=== PATIENT | male | born 1985 | race Hispanic/Latino ===

== ENCOUNTER 2018-05-11 19:10 | Emergency (ER) | payer MEDICAID, OTHER, SELFPAY ==
[2018-05-11 19:21] VITALS: BP 148/96; PULSE 88; RESP 16; TEMP 36.9; O2SAT 97; BMI 27.2
--- NOTE | 2018-05-11 19:23 | DI.CT.S_ITS ---
PROCEDURE: CT CHEST WO CON INDICATIONS: Ingestion of broken glass? TECHNIQUE: Noncontrast 5 mm thick sections acquired from the pulmonary apices to the posterior costophrenic angles. 7 mm thick coronal and sagittal MIP reformats were then acquired. For radiation dose reduction, the following was used: automated exposure control, adjustment of mA and/or kV according to patient size. COMPARISON: None. FINDINGS: Image quality: Excellent. Lungs and pleura: No acute air space opacities. No pleural effusions or pneumothorax. Central and peripheral airways are patent and normal in caliber. Mediastinum: Heart size is normal. No pericardial effusion. No mediastinal adenopathy by size criteria. Thoracic aorta and central pulmonary arteries are normal in size. Esophagus is normal in caliber. No hiatal hernia. Bones and chest wall: No suspicious bony lesions. No vertebral body compression fractures. Spine degenerative disease and facet arthropathy noted. No axillary or supraclavicular adenopathy by size criteria. Thyroid gland is within normal limits. Abdomen: Visualized upper abdominal solid organs and bowel loops appear normal in the absence of contrast. No definite radiodense foreign bodies. IMPRESSION: 1. No pneumomediastinum or pneumothorax. 2. No lung consolidation or pleural fluid collections. 3. No definite radiodense foreign bodies. Please note not all glass is radiopaque. Dictated by: Aleyda Wood MD, PhD on 05/11/2018 at 19:48 Approved by: Aleyda Wood MD, PhD on 05/11/2018 at 19:51
--- NOTE | 2018-05-11 19:32 | PC.NURSE ---
Pt reports finding glass in mouth after taking bite of goulash. Unsure if swallowed any. has pain in throat. starts dry heaving after swallowing anything.
--- NOTE | 2018-05-11 19:35 | ED.ABDPAIN ---
HPI - Abdominal Pain <LEXIE Baldwin - Last Filed: 05/11/18 21:54> General Chief Complaint: Abdominal Pain Stated Complaint: was eating, feels like something stuck in throat Time Seen by Provider: 05/11/18 19:14 Source: patient Mode of arrival: ambulatory Limitations: no limitations History of Present Illness HPI narrative: 33-year-old healthy male that is a nonsmoker here for complaint of pain his to his throat and upper chest area. He states that he thinks he small a small piece of glass just prior to arrival. He states there was couple pieces of broken glass that he had in a bite of food he was able to get a couple of pieces out of his mouth before he swallowed it. Shortly afterwards he started having pain into throat and upper chest area. Reports having some nausea with swallowing. He is able to swallow his own secretions. He is not spitting up any blood. He denies any other concerns or complaints at this timeframe. Related Data Previous Rx's Medication Instructions Recorded esomeprazole magnesium 20 mg PO DAILY #14 cap 05/11/18 ondansetron 4 mg PO Q6-8H PRN #10 tab 05/11/18 Review of Systems <LEXIE Baldwin - Last Filed: 05/11/18 21:54> Constitutional Denies chills, Denies fatigue, Denies fever(s), Denies lethargy and Denies weakness Eyes Denies change in vision, Denies eye discharge, Denies irritation and Denies loss of vision ENT Ears, Nose, Mouth, and Throat: Denies change in voice, Denies neck pain and Denies sore throat Cardiovascular Denies dyspnea and Denies dyspnea on exertion Respiratory Denies cough, Denies dyspnea, Denies dyspnea on exertion and Denies wheezing Gastrointestinal Gastrointestinal: Reports nausea Comments: Possible swallowed some glass Genitourinary Denies hematuria, Denies flank pain, Denies urinary incontinence and Denies urinary urgency Musculoskeletal Denies neck pain Integumentary/Breasts Denies pruritus, Denies erythema, Denies rash and Denies wounds Neurologic Denies loss of vision and Denies weakness Endocrine Denies fatigue and Denies flushing Hematologic/Lymphatic Denies easy bruising Allergic/Immunologic Denies wheezing PFSH <LEXIE Baldwin - Last Filed: 05/11/18 21:54> Social History Smoking Status: Never smoker Social History Smoking Status: Never smoker Exam <LEXIE Baldwin - Last Filed: 05/11/18 21:54> Initial Vital Signs Initial Vital Signs: Vital Signs Temperature 98.5 F 05/11/18 19:21 Pulse Rate 88 05/11/18 19:21 Respiratory Rate 16 05/11/18 19:21 Blood Pressure 148/96 H 05/11/18 19:21 Pulse Oximetry 97 05/11/18 19:21 Const General: cooperative and well developed Nutritional Appearance: well nourished Orientation: alert, awake, oriented x3 and not confused HENMT Mouth: oral mucosae normal and moist mucous membranes Eyes Conjunctivae: conjunctivae normal Sclera: sclerae normal Pupils: PERRL EOM: EOM intact bilaterally Resp Effort & Inspection: normal respiratory effort, able to speak in complete sentences, no respiratory distress and no use of accessory muscles Auscultation: clear to auscultation bilaterally, no rales, no rhonchi and no wheezes Cardio Rate: regular rate Rhythm: regular rhythm Heart Sounds: no click, no gallops, no murmurs and no rubs Pulses: normal peripheral pulses GI Inspection: non-distended Palpation: soft, no hepatosplenomegaly, No guarding, No pulsatile mass and No tender Auscultation: normal bowel sounds Skin General: no rashes or lesions noted, No jaundice and No petechiae Neuro General: alert, awake, oriented x3, gait normal and no focal motor deficits Speech: speech normal <Liborio Peterson DO - Last Filed: 05/12/18 05:50> Initial Vital Signs Initial Vital Signs: Vital Signs Temperature 98.5 F 05/11/18 19:21 Pulse Rate 88 05/11/18 19:21 Respiratory Rate 16 05/11/18 19:21 Blood Pressure 148/96 H 05/11/18 19:21 Pulse Oximetry 97 05/11/18 19:21 Course <LEXIE Baldwin - Last Filed: 05/11/18 21:54> Orders Ordered: Discontinued Medications Al Hydrox/Mg Hydrox/Simethicone 20 ml/ Lidocaine HCl 15 ml 0 ml PO NOW ONE Stop: 05/11/18 19:29 Last Admin: 05/11/18 19:48 Dose: 35 ml Vital Signs - 8 hr 05/11/18 19:21 05/11/18 20:34 05/11/18 20:46 Temperature 98.5 F Pulse Rate 88 81 84 Respiratory Rate 16 18 18 Blood Pressure 148/96 H 142/91 H Blood Pressure [Right Arm] 142/91 H Pulse Oximetry 97 98 98 <Liborio Peterson DO - Last Filed: 05/12/18 05:50> Orders Ordered: Discontinued Medications Al Hydrox/Mg Hydrox/Simethicone 20 ml/ Lidocaine HCl 15 ml 0 ml PO NOW ONE Stop: 05/11/18 19:29 Last Admin: 05/11/18 19:48 Dose: 35 ml Vital Signs - 8 hr 05/11/18 19:21 05/11/18 20:34 05/11/18 20:46 Temperature 98.5 F Pulse Rate 88 81 84 Respiratory Rate 16 18 18 Blood Pressure 148/96 H 142/91 H Blood Pressure [Right Arm] 142/91 H Pulse Oximetry 97 98 98 MDM - Abdominal Pain <LEXIE Baldwin - Last Filed: 05/11/18 21:54> MDM Narrative Medical decision making narrative: CT of the chest was obtained and was negative for any foreign bodies. No free air. No free fluid. Discussed case with Dr. Wolf surgery who recommends home treatment with Maalox a PPI and liquid diet along with Zofran. Patient was given a GI cocktail in the emergency room which helped his symptoms. Will have follow up with surgery outpatient here in the next couple days for re-evaluation. [id number] Tylenol as needed for any discomfort. Return emergency room for any worsening Discharge Plan Departure Patient Disposition: Home Clinical Impression: Foreign body ingestion Qualifiers: Encounter type: initial encounter Qualified Code(s): T18.9XXA - Foreign body of alimentary tract, part unspecified, initial encounter Discharge Date/Time: 05/11/18 20:47 Interventions: ED Discharge Assessment Last Done: 05/11/18 20:46 Instructions: DI for Accidental Ingestion -- Adult Activity Restrictions/Additional Instructions: CT of the abdomen was obtained and was negative for any signs of a foreign body. Use Zofran as prescribed to help with any nausea. Use anti acid medication esomeprazole as directed. Use [id number] Tylenol for discomfort may use wwiw-qpu-iriylul Maalox 30 mL at a time every few hours as needed to help with irritation. May follow up with surgery later this week if still having symptoms. For any worsening symptoms return to the emergency room. Prescriptions: New esomeprazole magnesium 20 mg capsule,delayed release(DR/EC) 20 mg PO DAILY Qty: 14 RF: 0 ondansetron 4 mg tablet,disintegrating 4 mg PO Q6-8H PRN (Reason: nausea and vomiting) Qty: 10 RF: 0 Referrals: Victor M Wolf MD [Physician] - <Liborio Peterson DO - Last Filed: 05/12/18 05:50> Cosign ED Attending Santiagoature Attestation: I was immediately available in the department for consultation. Documentation has been reviewed. I agree with assessment and plan.
[2018-05-11] MEDS: MAG HYDROX/ALUMINUM/SIMETH SUS 20 ML, LIDOCAINE VISCOUS 2% 15 ML PO (19:48)
[2018-05-11 20:34] VITALS: BP 142/91; PULSE 81; RESP 18; O2SAT 98
[2018-05-11 20:46] VITALS: BP 142/91; PULSE 84; RESP 18; O2SAT 98
== END 2018-05-11 20:47 | disposition home or self-care (01) ==
PROVIDERS: Emergency Provider Nurse Practitioner Family
DX: T18.9XXA Foreign body of alimentary tract, part unspecified, initial encounter (principal)
CPT/HCPCS: 71250; 99282; 99284

== ENCOUNTER 2018-08-19 11:47 | Emergency (ER) | payer MEDICAID, OTHER, SELFPAY ==
[2018-08-19 12:03] VITALS: BP 135/86; PULSE 97; RESP 17; TEMP 36.7; O2SAT 98
--- NOTE | 2018-08-19 12:53 | ED.URI ---
HPI - URI/Sore Throat <Lindy Heredia PA-C - Last Filed: 08/19/18 19:07> General Chief Complaint: Upper Respiratory Symptoms Stated Complaint: fever/congested nose/cough Time Seen by Provider: 08/19/18 12:51 Source: patient Mode of arrival: ambulatory Limitations: no limitations History of Present Illness HPI Narrative: This healthy 33-year-old male complains of onset of upper respiratory symptoms 5 days ago, with runny nose, some achiness, cough with yellow phlegm, nasal and chest congestion. He states that he also feels like he has postnasal drip and cough is worse at night. He states he has felt a little warm at times but denies fever. He denies dyspnea or wheeze. No chest pain or rash. He states that he does not know of any specific exposures, no recent travel, however his and son came down with similar symptoms after he was ill. He states his chest congestion seems somewhat worse today, otherwise no changes Related Data Previous Rx's Medication Instructions Recorded esomeprazole magnesium 20 mg PO DAILY #14 cap 05/11/18 ondansetron 4 mg PO Q6-8H PRN #10 tab 05/11/18 Allergies Allergy/AdvReac Type Severity Reaction Status Date / Time No Known Drug Allergies Allergy Verified 08/19/18 12:06 Review of Systems <Lindy Heredia PA-C - Last Filed: 08/19/18 19:07> Review of Systems ROS Unobtainable: All systems reviewed & are unremarkable except as noted in HPI and below PFSH <Lindy Heredia PA-C - Last Filed: 08/19/18 19:07> Medical History (Updated 08/19/18 @ 19:06 by Lindy Heredia PA-C) No chronic problems (Chronic) Surgical History (Updated 08/19/18 @ 19:06 by Lindy Heredia PA-C) No history of previous surgery (Chronic) Social History Smoking Status: Never smoker Social History Smoking Status: Never smoker Exam <Lindy Heredia PA-C - Last Filed: 08/19/18 19:07> Narrative Exam Narrative: GENERAL APPEARANCE: Patient sitting comfortably, in no distress. HEAD: No sinus TTP. EYES: PERRL, EOMI. EARS: Normal auditory canals, TMS intact with normal light reflexes. ORAL CAVITY: Normal oropharynx. THROAT: No erythema or exudate, PND noted NECK/THYROID: Neck supple, full range of motion, shotty anterior cervical lymphadenopathy. LUNGS: Clear to auscultation bilaterally, no cough on exam. HEART: RRR without murmur, nl S1, S2, no S3 or S4. DERMATOLOGIC: No exanthem Initial Vital Signs Initial Vital Signs: Vital Signs Temperature 98.1 F 08/19/18 12:03 Pulse Rate 97 H 08/19/18 12:03 Respiratory Rate 17 08/19/18 12:03 Blood Pressure 135/86 08/19/18 12:03 Pulse Oximetry 98 08/19/18 12:03 <Kendy Chester MD - Last Filed: 08/19/18 19:58> Initial Vital Signs Initial Vital Signs: Vital Signs Temperature 98.1 F 08/19/18 12:03 Pulse Rate 97 H 08/19/18 12:03 Respiratory Rate 17 08/19/18 12:03 Blood Pressure 135/86 08/19/18 12:03 Pulse Oximetry 98 08/19/18 12:03 Course <Lindy Heredia PA-C - Last Filed: 08/19/18 19:07> Vital Signs - 8 hr 08/19/18 12:03 08/19/18 13:39 Temperature 98.1 F Pulse Rate 97 H 88 Respiratory Rate 17 16 Blood Pressure 135/86 133/76 Pulse Oximetry 98 98 <Kendy Chester MD - Last Filed: 08/19/18 19:58> Vital Signs - 8 hr 08/19/18 12:03 08/19/18 13:39 Temperature 98.1 F Pulse Rate 97 H 88 Respiratory Rate 17 16 Blood Pressure 135/86 133/76 Pulse Oximetry 98 98 Discharge Plan Departure Patient Disposition: Home Clinical Impression: Upper respiratory infection Qualifiers: URI type: unspecified viral URI Qualified Code(s): J06.9 - Acute upper respiratory infection, unspecified Discharge Date/Time: 08/19/18 13:40 Interventions: ED Discharge Assessment Last Done: 08/19/18 13:39 Instructions: DI for Viral Upper Respiratory Infection -- Adult Activity Restrictions/Additional Instructions: I suspect that you have a viral respiratory infection since whole family has been sick with similar symptoms. Typically these infections resolved within 10-14 days, so you should be feeling better by next week. You can try lwwi-eou-fabcbfq pseudoephedrine (get this from the pharmacist) to help with your nasal congestion. You can also add jmwz-qli-gjncvrz Mucinex to help loosen your chest congestion. Please return if you have any acutely worsening symptoms like high fever not responding to oeiw-lyz-byekttz medicines or breathing difficulties. Please follow-up with your primary care clinic if you are not feeling better in about a week. You can call [facility] for a referral to a provider who takes your insurance, or you can call your insurance company to get this as well Prescriptions: No Action esomeprazole magnesium 20 mg capsule,delayed release(DR/EC) 20 mg PO DAILY Qty: 14 RF: 0 ondansetron 4 mg tablet,disintegrating 4 mg PO Q6-8H PRN (Reason: nausea and vomiting) Qty: 10 RF: 0
[2018-08-19 13:39] VITALS: BP 133/76; PULSE 88; RESP 16; O2SAT 98
--- NOTE | 2018-08-19 13:39 | PC.NURSE ---
cough deep in my chest, has been taking dayquil with oliver's and nyquil.
--- NOTE | 2018-08-19 19:07 | ED_ITS ---
HPI - URI/Sore Throat <Lindy Heredia PA-C - Last Filed: 08/19/18 19:07> General Chief Complaint: Upper Respiratory Symptoms Stated Complaint: fever/congested nose/cough Time Seen by Provider: 08/19/18 12:51 Source: patient Mode of arrival: ambulatory Limitations: no limitations History of Present Illness HPI Narrative: This healthy 33-year-old male complains of onset of upper respiratory symptoms 5 days ago, with runny nose, some achiness, cough with yellow phlegm, nasal and chest congestion. He states that he also feels like he has postnasal drip and cough is worse at night. He states he has felt a little warm at times but denies fever. He denies dyspnea or wheeze. No chest pain or rash. He states that he does not know of any specific exposures, no recent travel, however his and son came down with similar symptoms after he was ill. He states his chest congestion seems somewhat worse today, otherwise no changes Related Data Previous Rx's Medication Instructions Recorded esomeprazole magnesium 20 mg PO DAILY #14 cap 05/11/18 ondansetron 4 mg PO Q6-8H PRN #10 tab 05/11/18 Allergies Allergy/AdvReac Type Severity Reaction Status Date / Time No Known Drug Allergies Allergy Verified 08/19/18 12:06 Review of Systems <Lindy Heredia PA-C - Last Filed: 08/19/18 19:07> Review of Systems ROS Unobtainable: All systems reviewed & are unremarkable except as noted in HPI and below PFSH <Lindy Heredia PA-C - Last Filed: 08/19/18 19:07> Medical History (Updated 08/19/18 @ 19:06 by Lindy Heredia PA-C) No chronic problems (Chronic) Surgical History (Updated 08/19/18 @ 19:06 by Lindy Heredia PA-C) No history of previous surgery (Chronic) Social History Smoking Status: Never smoker Social History Smoking Status: Never smoker Exam <Lindy Heredia PA-C - Last Filed: 08/19/18 19:07> Narrative Exam Narrative: GENERAL APPEARANCE: Patient sitting comfortably, in no distress. HEAD: No sinus TTP. EYES: PERRL, EOMI. EARS: Normal auditory canals, TMS intact with normal light reflexes. ORAL CAVITY: Normal oropharynx. THROAT: No erythema or exudate, PND noted NECK/THYROID: Neck supple, full range of motion, shotty anterior cervical lymphadenopathy. LUNGS: Clear to auscultation bilaterally, no cough on exam. HEART: RRR without murmur, nl S1, S2, no S3 or S4. DERMATOLOGIC: No exanthem Initial Vital Signs Initial Vital Signs: Vital Signs Temperature 98.1 F 08/19/18 12:03 Pulse Rate 97 H 08/19/18 12:03 Respiratory Rate 17 08/19/18 12:03 Blood Pressure 135/86 08/19/18 12:03 Pulse Oximetry 98 08/19/18 12:03 <Kendy Chester MD - Last Filed: 08/19/18 19:58> Initial Vital Signs Initial Vital Signs: Vital Signs Temperature 98.1 F 08/19/18 12:03 Pulse Rate 97 H 08/19/18 12:03 Respiratory Rate 17 08/19/18 12:03 Blood Pressure 135/86 08/19/18 12:03 Pulse Oximetry 98 08/19/18 12:03 Course <Lindy Heredia PA-C - Last Filed: 08/19/18 19:07> Vital Signs - 8 hr 08/19/18 12:03 08/19/18 13:39 Temperature 98.1 F Pulse Rate 97 H 88 Respiratory Rate 17 16 Blood Pressure 135/86 133/76 Pulse Oximetry 98 98 <Kendy Chester MD - Last Filed: 08/19/18 19:58> Vital Signs - 8 hr 08/19/18 12:03 08/19/18 13:39 Temperature 98.1 F Pulse Rate 97 H 88 Respiratory Rate 17 16 Blood Pressure 135/86 133/76 Pulse Oximetry 98 98 Discharge Plan Departure Patient Disposition: Home Clinical Impression: Upper respiratory infection Qualifiers: URI type: unspecified viral URI Qualified Code(s): J06.9 - Acute upper respiratory infection, unspecified Discharge Date/Time: 08/19/18 13:40 Interventions: ED Discharge Assessment Last Done: 08/19/18 13:39 Instructions: DI for Viral Upper Respiratory Infection -- Adult Activity Restrictions/Additional Instructions: I suspect that you have a viral respiratory infection since whole family has been sick with similar symptoms. Typically these infections resolved within 10- 14 days, so you should be feeling better by next week. You can try zlfg-xzy-qlmhgnq pseudoephedrine (get this from the pharmacist) to help with your nasal congestion. You can also add ewge-zpw-ibemfbt Mucinex to help loosen your chest congestion. Please return if you have any acutely worsening symptoms like high fever not responding to kxjr-uvt-avcqczy medicines or breathing difficulties. Please follow-up with your primary care clinic if you are not feeling better in about a week. You can call [facility] for a referral to a provider who takes your insurance, or you can call your insurance company to get this as well Prescriptions: No Action esomeprazole magnesium 20 mg capsule,delayed release(DR/EC) 20 mg PO DAILY Qty: 14 RF: 0 ondansetron 4 mg tablet,disintegrating 4 mg PO Q6-8H PRN (Reason: nausea and vomiting) Qty: 10 RF: 0
== END 2018-08-19 13:40 | disposition home or self-care (01) ==
PROVIDERS: Emergency Provider Internal Medicine
DX: J06.9 Acute upper respiratory infection, unspecified (principal)
CPT/HCPCS: 99282

== ENCOUNTER 2018-10-03 18:37 | Emergency (ER) | payer MEDICAID, OTHER, SELFPAY ==
[2018-10-03 18:55] VITALS: BMI 27.2
--- NOTE | 2018-10-03 18:56 | DI.RAD.S_ITS ---
PROCEDURE: XR FOOT RT MIN 3V INDICATIONS: right foot pain from fall TECHNIQUE: 3 views of the foot were acquired. COMPARISON: None. FINDINGS: Bones: No fractures or dislocations. No suspicious bony lesions. Soft tissues: No tibiotalar joint effusion. IMPRESSION: No acute fracture or dislocation of the right foot identified. Consider followup radiographs in 7-10 days if there is continued clinical concern. Dictated by: Bruce Wright M.D. on 10/03/2018 at 20:11 Approved by: Bruce Wright M.D. on 10/03/2018 at 20:12
--- NOTE | 2018-10-03 22:53 | ED.LOWEXIN ---
HPI - Extremity Injury (Lower) <CONOR Thomas - Last Filed: 10/03/18 23:17> General Chief Complaint: Extremity Injury, Lower Stated Complaint: thinks he broke his toes on right foot Time Seen by Provider: 10/03/18 22:49 Source: patient and family Mode of arrival: ambulatory Limitations: no limitations History of Present Illness HPI Narrative: The patient is a 33-year-old male who denies any medical history presents with a chief complaint of toe pain. He states he jammed his foot, hyperextending his foot. He has taken Tylenol for the pain. He has not done any ibuprofen rest ice compression elevation. He denies any history of foot injury. He is concerned he has broken his toes. Related Data Previous Rx's Medication Instructions Recorded esomeprazole magnesium 20 mg PO DAILY #14 cap 05/11/18 ondansetron 4 mg PO Q6-8H PRN #10 tab 05/11/18 Allergies Allergy/AdvReac Type Severity Reaction Status Date / Time No Known Drug Allergies Allergy Verified 10/03/18 18:55 Review of Systems <CONOR Thomas - Last Filed: 10/03/18 23:17> Review of Systems GENERAL: Denies chills, fatigue, malaise, fever, sweats. HEENT: Denies sinus pain, ear pain, sore throat, difficulty swallowing, dizziness. RESPIRATORY: Denies dyspnea, cough, wheezing, hemoptysis, sputum. CARDIOVASCULAR: Denies chest pain, palpitations, orthopnea, edema, GASTROINTESTINAL: Denies nausea, vomiting, abdominal pain, diarrhea, constipation, melena. : Denies dysuria, frequency, incontinence, hematuria, urinary retention. MUSCULOSKELETAL: See HPI SKIN: Denies rash, skin lesions, or other NEUROLOGIC: Denies weakness, headache, numbness, change in speech, confusion, seizures, incoordination. PSYCHIATRIC: No concerning psychosocial issues. 12 point review of systems is negative except for those stated above PFSH <CONOR Thomas - Last Filed: 10/03/18 23:17> Medical History (Updated 10/03/18 @ 22:58 by CONOR Thomas) Family history non-contributory (Acute) No chronic problems (Chronic) Surgical History (Updated 08/19/18 @ 19:06 by Lindy Heredia PA-C) No history of previous surgery (Chronic) Social History Smoking Status: Never smoker Social History Smoking Status: Never smoker Exam <CONOR Thomas - Last Filed: 10/03/18 23:17> Narrative Exam Narrative: GENERAL: This is a well-nourished, well-developed patient, in no acute distress HEAD: Atraumatic. Normocephalic. No temporal or scalp tenderness. EYES: Pupils equal round and reactive. Extraocular motions intact. No scleral icterus. No injection or drainage. ENT: Nose without bleeding, purulent drainage or septal hematoma. Throat without erythema, tonsillar hypertrophy or exudate. Uvula midline. Airway patent. NECK: Trachea midline. No JVD or lymphadenopathy. Supple, nontender, no meningeal signs. CARDIOVASCULAR: Regular rate and rhythm EXTREMITIES: Pain to palpation of her right navicular. Positive pedal pulses. Capillary refill less than 2 seconds. BACK: Nontender without deformity or crepitance. No flank tenderness. NEURO: AOx3. SKIN: No rash erythema or ecchymosis noted right foot. Initial Vital Signs Initial Vital Signs: Vital Signs Pulse Rate 53 L 10/03/18 23:07 Respiratory Rate 15 10/03/18 23:07 Blood Pressure 132/85 10/03/18 23:07 Pulse Oximetry 98 10/03/18 23:07 <Diego Reza MD - Last Filed: 10/04/18 06:28> Initial Vital Signs Initial Vital Signs: Vital Signs Pulse Rate 53 L 10/03/18 23:07 Respiratory Rate 15 10/03/18 23:07 Blood Pressure 132/85 10/03/18 23:07 Pulse Oximetry 98 10/03/18 23:07 Procedures <CONOR Thomas - Last Filed: 10/03/18 23:17> Orthopedic Splinting/Casting Injury #1: Side: left Lower Extremity Injury Location: foot Lower Extremity Immobilizer: boot orthosis, post-op shoe and Joseluis wrap Other Orthopedic Equipment: crutches Post splinting neuro exam: intact Post splinting vascular exam: intact Placed by: Nursing Course <CONOR Thomas - Last Filed: 10/03/18 23:17> Orders Ordered: Discontinued Medications Ketorolac Tromethamine (Toradol) 60 mg IM NOW ONE Stop: 10/03/18 22:53 Last Admin: 10/03/18 23:12 Dose: 60 mg Vital Signs - 8 hr 10/03/18 23:07 Pulse Rate 53 L Respiratory Rate 15 Blood Pressure [Right Arm] 132/85 Pulse Oximetry 98 <Diego Reza MD - Last Filed: 10/04/18 06:28> Orders Ordered: Discontinued Medications Ketorolac Tromethamine (Toradol) 60 mg IM NOW ONE Stop: 10/03/18 22:53 Last Admin: 10/03/18 23:12 Dose: 60 mg Vital Signs - 8 hr 10/03/18 23:07 Pulse Rate 53 L Respiratory Rate 15 Blood Pressure [Right Arm] 132/85 Pulse Oximetry 98 MDM - Extremity Injury (Lower) <CONOR Thomas - Last Filed: 10/03/18 23:17> Imaging Data Foot x-ray: Radiologist's impression: [address] [address] XRay Report Signed Patient: Canelo Ferreira#: [id number] : 1985Acct:[id number] Age/Sex: 33 / MDate of Service: 10/03/18 Loc: Accession Number: [id number] Procedure: XR foot RT min 3V Ordering Provider: Diego Reza MD PROCEDURE: XR FOOT RT MIN 3V INDICATIONS: right foot pain from fall TECHNIQUE: 3 views of the foot were acquired. COMPARISON: None. FINDINGS: Bones: No fractures or dislocations. No suspicious bony lesions. Soft tissues: No tibiotalar joint effusion. IMPRESSION: No acute fracture or dislocation of the right foot identified. Consider followup radiographs in 7-10 days if there is continued clinical concern. Dictated by: Bruce Wright M.D. on 10/03/2018 at 20:11 Approved by: Bruce Wright M.D. on 10/03/2018 at 20:12 [facility] Narrative Medical decision making narrative: The patient is a 33-year-old male who presents with a chief complaint of foot pain. He has a negative x-ray. He was given Toradol placed in a postoperative shoe. I discussed at length rest ice compression elevation as well as [id number]-iao-[id number] pain medications as needed and able. Discussed follow-up with PCP. Encourage coming back to the ER for any acute concerns such as decreased circulation to his toes. No questions or concerns on discharge. Patient is relieved that there is no obvious foot fracture. Neurovascularly intact. Discharge Plan Departure Patient Disposition: Home Clinical Impression: Foot sprain Qualifiers: Encounter type: initial encounter Laterality: right Qualified Code(s): S93.601A - Unspecified sprain of right foot, initial encounter Discharge Date/Time: 10/03/18 23:30 Interventions: ED Discharge Assessment Last Done: 10/03/18 23:30 Instructions: How to Use Crutches, How To Perform RICE (Rest, Ice, Compress, Elevate), DI for Foot Pain Activity Restrictions/Additional Instructions: Your x-ray today shows no acute fracture. Please use rest ice compression elevation as well as ookk-tym-ooemuyy pain medications as needed and able. You can start taking ibuprofen in 6-8 hours after your injection. Please follow up with her primary care provider. I have given you contact information and [facility] health information resources manager. They can help you located primary care provider. Please come back to the ER for any acute concerns such as decreased circulation to the toes. Prescriptions: No Action esomeprazole magnesium 20 mg capsule,delayed release(DR/EC) 20 mg PO DAILY Qty: 14 RF: 0 ondansetron 4 mg tablet,disintegrating 4 mg PO Q6-8H PRN (Reason: nausea and vomiting) Qty: 10 RF: 0 Referrals: [facility] Health Resources [Outside] <Diego Reza MD - Last Filed: 10/04/18 06:28> Cosign ED Attending Santiagoature Attestation: I was present in the ER at the time this patient's care. I was available for consultation or to see the patient directly if needed. I agree with evaluation, the assessment and treatment plan.
--- NOTE | 2018-10-03 22:58 | ED_ITS ---
HPI - Extremity Injury (Lower) <CONOR Thomas - Last Filed: 10/03/18 23:17> General Chief Complaint: Extremity Injury, Lower Stated Complaint: thinks he broke his toes on right foot Time Seen by Provider: 10/03/18 22:49 Source: patient and family Mode of arrival: ambulatory Limitations: no limitations History of Present Illness HPI Narrative: The patient is a 33-year-old male who denies any medical history presents with a chief complaint of toe pain. He states he jammed his foot, hyperextending his foot. He has taken Tylenol for the pain. He has not done any ibuprofen rest ice compression elevation. He denies any history of foot injury. He is concerned he has broken his toes. Related Data Previous Rx's Medication Instructions Recorded esomeprazole magnesium 20 mg PO DAILY #14 cap 05/11/18 ondansetron 4 mg PO Q6-8H PRN #10 tab 05/11/18 Allergies Allergy/AdvReac Type Severity Reaction Status Date / Time No Known Drug Allergies Allergy Verified 10/03/18 18:55 Review of Systems <CONOR Thomas - Last Filed: 10/03/18 23:17> Review of Systems GENERAL: Denies chills, fatigue, malaise, fever, sweats. HEENT: Denies sinus pain, ear pain, sore throat, difficulty swallowing, dizziness. RESPIRATORY: Denies dyspnea, cough, wheezing, hemoptysis, sputum. CARDIOVASCULAR: Denies chest pain, palpitations, orthopnea, edema, GASTROINTESTINAL: Denies nausea, vomiting, abdominal pain, diarrhea, constipation, melena. : Denies dysuria, frequency, incontinence, hematuria, urinary retention. MUSCULOSKELETAL: See HPI SKIN: Denies rash, skin lesions, or other NEUROLOGIC: Denies weakness, headache, numbness, change in speech, confusion, seizures, incoordination. PSYCHIATRIC: No concerning psychosocial issues. 12 point review of systems is negative except for those stated above PFSH <CONOR Thomas - Last Filed: 10/03/18 23:17> Medical History (Updated 10/03/18 @ 22:58 by CONOR Thomas) Family history non-contributory (Acute) No chronic problems (Chronic) Surgical History (Updated 08/19/18 @ 19:06 by Lindy Heredia PA-C) No history of previous surgery (Chronic) Social History Smoking Status: Never smoker Social History Smoking Status: Never smoker Exam <CONOR Thomas - Last Filed: 10/03/18 23:17> Narrative Exam Narrative: GENERAL: This is a well-nourished, well-developed patient, in no acute distress HEAD: Atraumatic. Normocephalic. No temporal or scalp tenderness. EYES: Pupils equal round and reactive. Extraocular motions intact. No scleral icterus. No injection or drainage. ENT: Nose without bleeding, purulent drainage or septal hematoma. Throat without erythema, tonsillar hypertrophy or exudate. Uvula midline. Airway patent. NECK: Trachea midline. No JVD or lymphadenopathy. Supple, nontender, no meningeal signs. CARDIOVASCULAR: Regular rate and rhythm EXTREMITIES: Pain to palpation of her right navicular. Positive pedal pulses. Capillary refill less than 2 seconds. BACK: Nontender without deformity or crepitance. No flank tenderness. NEURO: AOx3. SKIN: No rash erythema or ecchymosis noted right foot. Initial Vital Signs Initial Vital Signs: Vital Signs Pulse Rate 53 L 10/03/18 23:07 Respiratory Rate 15 10/03/18 23:07 Blood Pressure 132/85 10/03/18 23:07 Pulse Oximetry 98 10/03/18 23:07 <Diego Reza MD - Last Filed: 10/04/18 06:28> Initial Vital Signs Initial Vital Signs: Vital Signs Pulse Rate 53 L 10/03/18 23:07 Respiratory Rate 15 10/03/18 23:07 Blood Pressure 132/85 10/03/18 23:07 Pulse Oximetry 98 10/03/18 23:07 Procedures <CONOR Thomas - Last Filed: 10/03/18 23:17> Orthopedic Splinting/Casting Injury #1: Side: left Lower Extremity Injury Location: foot Lower Extremity Immobilizer: boot orthosis, post-op shoe and Joseluis wrap Other Orthopedic Equipment: crutches Post splinting neuro exam: intact Post splinting vascular exam: intact Placed by: Nursing Course <CONOR Thomas - Last Filed: 10/03/18 23:17> Orders Ordered: Discontinued Medications Ketorolac Tromethamine (Toradol) 60 mg IM NOW ONE Stop: 10/03/18 22:53 Last Admin: 10/03/18 23:12 Dose: 60 mg Vital Signs - 8 hr 10/03/18 23:07 Pulse Rate 53 L Respiratory Rate 15 Blood Pressure [Right Arm] 132/85 Pulse Oximetry 98 <Diego Reza MD - Last Filed: 10/04/18 06:28> Orders Ordered: Discontinued Medications Ketorolac Tromethamine (Toradol) 60 mg IM NOW ONE Stop: 10/03/18 22:53 Last Admin: 10/03/18 23:12 Dose: 60 mg Vital Signs - 8 hr 10/03/18 23:07 Pulse Rate 53 L Respiratory Rate 15 Blood Pressure [Right Arm] 132/85 Pulse Oximetry 98 MDM - Extremity Injury (Lower) <CONOR Thomas - Last Filed: 10/03/18 23:17> Imaging Data Foot x-ray: Radiologist's impression: [address] [address] XRay Report Signed Patient: Canelo Ferreira#: [id number] : 1985Acct:[id number] Age/Sex: 33 / MDate of Service: 10/03/18 Loc: Accession Number: [id number] Procedure: XR foot RT min 3V Ordering Provider: Diego Reza MD PROCEDURE: XR FOOT RT MIN 3V INDICATIONS: right foot pain from fall TECHNIQUE: 3 views of the foot were acquired. COMPARISON: None. FINDINGS: Bones: No fractures or dislocations. No suspicious bony lesions. Soft tissues: No tibiotalar joint effusion. IMPRESSION: No acute fracture or dislocation of the right foot identified. Consider followup radiographs in 7-10 days if there is continued clinical concern. Dictated by: Bruce Wright M.D. on 10/03/2018 at 20:11 Approved by: Bruce Wright M.D. on 10/03/2018 at 20:12 [facility] Narrative Medical decision making narrative: The patient is a 33-year-old male who presents with a chief complaint of foot pain. He has a negative x-ray. He was given Toradol placed in a postoperative shoe. I discussed at length rest ice compression elevation as well as pzfo-juw-compbga pain medications as needed and able. Discussed follow-up with PCP. Encourage coming back to the ER for any acute concerns such as decreased circulation to his toes. No questions or concerns on discharge. Patient is relieved that there is no obvious foot fracture. Neurovascularly intact. Discharge Plan Departure Patient Disposition: Home Clinical Impression: Foot sprain Qualifiers: Encounter type: initial encounter Laterality: right Qualified Code(s): S93.601A - Unspecified sprain of right foot, initial encounter Discharge Date/Time: 10/03/18 23:30 Interventions: ED Discharge Assessment Last Done: 10/03/18 23:30 Instructions: How to Use Crutches, How To Perform RICE (Rest, Ice, Compress, Elevate), DI for Foot Pain Activity Restrictions/Additional Instructions: Your x-ray today shows no acute fracture. Please use rest ice compression elevation as well as jayj-yvh-fmyhmmj pain medications as needed and able. You can start taking ibuprofen in 6-8 hours after your injection. Please follow up with her primary care provider. I have given you contact information and [facility] health vice president of human resources. They can help you located primary care provider. Please come back to the ER for any acute concerns such as decreased circulation to the toes. Prescriptions: No Action esomeprazole magnesium 20 mg capsule,delayed release(DR/EC) 20 mg PO DAILY Qty: 14 RF: 0 ondansetron 4 mg tablet,disintegrating 4 mg PO Q6-8H PRN (Reason: nausea and vomiting) Qty: 10 RF: 0 Referrals: [facility] Health Resources [Outside] <Diego Reza MD - Last Filed: 10/04/18 06:28> Cosign ED Attending Santiagoature Attestation: I was present in the ER at the time this patient's care. I was available for consultation or to see the patient directly if needed. I agree with evaluation, the assessment and treatment plan.
[2018-10-03 23:07] VITALS: BP 132/85; PULSE 53; RESP 15; O2SAT 98
[2018-10-03] MEDS: KETOROLAC 60 MG/2 ML VIAL IM (23:12)
== END 2018-10-03 23:30 | disposition home or self-care (01) ==
PROVIDERS: Emergency Provider Nurse Practitioner Family
DX: S93.601A Unspecified sprain of right foot, initial encounter (principal); W01.0XXA Fall on same level from slipping, tripping and stumbling without subsequent striking against object, initial encounter
CPT/HCPCS: 29550; 73630; 96372; 99282; 99283; J1885

== ENCOUNTER 2019-03-24 22:40 | Emergency (ER) | payer MEDICAID, OTHER, SELFPAY ==
[2019-03-24 22:55] VITALS: BP 133/99; PULSE 90; RESP 14; TEMP 36.4; O2SAT 97; BMI 26.6
[2019-03-24 23:05] LABS: Add Manual Diff / Slide Review NO; Basophils Absolute Auto 100 /uL (0-100); Basophils Percent Auto 0.4 % (0-2); Eosinophils Absolute Auto 100 /uL (0-450); Eosinophils Percent Auto 0.8 % (2-4); Hematocrit 46.6 % (41-53); Lymphocytes Absolute Auto 1700 /uL (1100-4500); Lymphocytes Percent Auto 13.8 % (25-40); Mean Corpuscular HGB Conc 34.2 % (30-36); Mean Corpuscular Hemoglobin 27.8 PG (26-34); Mean Corpuscular Volume 81.3 fL (80-100); Monocytes Absolute Auto 800 /uL (0-900); Monocytes Percent Auto 6.4 % (3-14); Neutrophils Absolute Auto 10000 /uL (1500-7000); Neutrophils Percent Auto 78.6 % (50-75); Platelet Count 335 X10^3/uL (150-400); Red Blood Cell Count 5.73 X10^6/uL (4.5-5.9); Red Cell Distribution Width 14.6 % (11.6-14.8); White Blood Cell Count 12.7 X10^3/uL (4.5-11.0)
[2019-03-24 23:14] LABS: Alanine Aminotransferase 36 IU/L (<50); Albumin 5.1 g/dL (3.5-5.0); Albumin Globulin Ratio 1.3 (1.0-2.8); Alkaline Phosphatase 104 U/L (38-126); Aspartate Aminotransferase 30 IU/L (17-59); BUN Creatinine Ratio 17.5 (6-22); Bilirubin Total 0.9 mg/dL (0.2-1.3); Blood Urea Nitrogen 14 mg/dL (9-20); Calcium 9.5 mg/dL (8.4-10.2); Carbon Dioxide 24 mmol/L (22-32); Chloride 104 mmol/L (98-107); Estimated Glomerular Filt Rate > 60.0 mL/min (>60); Globulin 3.9 g/dL (1.7-4.1); Glucose 107 mg/dL (70-100); HEMOLYSIS 18 (0-50); Potassium 3.9 mmol/L (3.4-5.1); Sodium 141 mmol/L (137-145)
--- NOTE | 2019-03-24 23:14 | ED.NAVMDI ---
HPI - Nausea/Vomiting/Diarrhea General Chief complaint: Nausea/Vomiting/Diarrhea Stated complaint: N/V/D Time Seen by Provider: 03/24/19 22:42 Source: patient Mode of arrival: Ambulatory Limitations: no limitations History of Present Illness HPI Narrative: 34-year-old male nonsmoker with noncontributory medical history presents with a chief complaint of multiple episodes of nausea, vomiting and diarrhea along with abdominal cramping for the past few days. He is not dizzy nor weak or lightheaded but is feeling fatigued and a bit run down. He states that the symptoms started a few hours after a large community gathering and meal over the weekend. It is unclear if other persons have been afflicted with the same symptoms. He denies any recent international travel or use of antibiotics. He denies any bloody stool. His pain is episodic, unprovoked and crampy in nature. MD complaint: nausea, vomiting, diarrhea and abdominal pain Onset (ago): day(s) Description of Vomiting: food contents Description of Diarrhea: watery Associated Abdominal Pain: Yes Location of pain: diffuse Quality: cramping Pain Consistency: intermittent Relieving factors: none Exacerbating factors: none Context: possible food poisoning Related Data Previous Rx's Medication Instructions Recorded esomeprazole magnesium 20 mg PO DAILY #14 cap 05/11/18 ondansetron 4 mg PO Q6-8H PRN #10 tab 05/11/18 ciprofloxacin HCl 500 mg PO BID #10 tab 03/25/19 hyoscyamine sulfate 0.125 mg PO BID-QID PRN #14 tab 03/25/19 Allergies Allergy/AdvReac Type Severity Reaction Status Date / Time No Known Drug Allergies Allergy Verified 10/03/18 18:55 Review of Systems Constitutional Constitutional: Denies chills, Denies fatigue, Denies fever(s), Denies frequent falls, Denies lethargy and Denies weakness Eyes Eyes: Denies change in vision, Denies eye discharge, Denies irritation and Denies loss of vision ENT Ears, Nose, Mouth, and Throat: Denies change in voice, Denies dizziness, Denies neck pain, Denies sore throat and Denies throat swelling Cardiovascular Cardiovascular: Denies chest pain, Denies irregular heart rhythm, Denies lightheadedness, Denies palpitations, Denies dyspnea, Denies dyspnea on exertion and Denies orthopnea Respiratory Respiratory: Denies cough, Denies dyspnea, Denies dyspnea on exertion and Denies wheezing Gastrointestinal Gastrointestinal: Reports abdominal pain, Denies change in bowel habits, Reports diarrhea, Denies nausea and Reports vomiting Genitourinary Genitourinary: Denies hematuria, Denies flank pain, Denies urinary incontinence and Denies urinary urgency Musculoskeletal Musculoskeletal: Denies back pain, Denies muscle weakness, Denies neck pain, Denies numbness and Denies tingling Integumentary/Breasts Skin/Breast: Denies pruritus, Denies erythema, Denies rash and Denies wounds Neurologic Neurologic: Denies behavioral changes, Denies confusion, Denies dizziness, Denies frequent falls, Denies loss of vision, Denies numbness, Denies tingling and Denies weakness Psychiatric Psychiatric: Denies anxiety, Denies behavioral changes, Denies confusion, Denies depression, Denies homicidal ideation and Denies suicidal ideation Endocrine Endocrine: Denies fatigue, Denies flushing and Denies palpitations Hematologic/Lymphatic Hematologic/Lymphatic: Denies easy bruising Allergic/Immunologic Allergic/Immunologic: Denies urticaria, Denies throat swelling and Denies wheezing Patient History Medical History Family history non-contributory (Acute) No chronic problems (Chronic) Surgical History No history of previous surgery (Chronic) Social History Smoking Status: Never smoker Smoking Status: Never smoker alcohol intake frequency: 0-2 drinks per day Substance Use Type: does not use Exam Narrative Exam Narrative: GENERAL: [34] year old patient appears stated age. Well-nourished, well-developed patient, in mild distress. HEAD: Atraumatic. Normocephalic. EYES: Pupils equal round and reactive. Extraocular motions intact. No scleral icterus. No injection or drainage. ENT: Nose without bleeding, purulent drainage. Throat without erythema, tonsillar hypertrophy or exudate. Airway patent. NECK: Trachea midline. Non tender CARDIOVASCULAR: Regular rate and rhythm without murmurs, gallops, or rubs. RESPIRATORY: Clear to auscultation. Breath sounds equal bilaterally. No wheezes, rales, or rhonchi. GASTROINTESTINAL: Abdomen soft, mild generalized tenderness with increased bowel sounds, nondistended. EXTREMITIES: No edema or joint tenderness. BACK: Nontender without deformity or crepitance. No flank tenderness. NEURO: AOx3. SKIN: No rash or erythema of visible areas Initial Vital Signs Initial Vital Signs: Vital Signs Temperature 97.6 F 03/24/19 22:55 Pulse Rate 90 03/24/19 22:55 Respiratory Rate 14 03/24/19 22:55 Blood Pressure 133/99 H 03/24/19 22:55 Pulse Oximetry 97 03/24/19 22:55 Course Orders Ordered: ED Orders 03/24/19 22:50 Complete Blood Count AUTO DIFF Stat Comprehensive Metabolic Panel Stat 03/24/19 23:15 GI Panel (Film Array) Stat Discontinued Medications Sodium Chloride (Normal Saline 0.9%) 1,000 mls @ 1,000 mls/hr IV BOLUS ONE Stop: 03/24/19 23:52 Last Infusion: 03/25/19 01:01 Dose: 0 mls/hr Documented by: Admin: 03/24/19 23:26 Dose: 1,000 mls/hr Documented by: KEZIA Levofloxacin (Levaquin) 500 mg PO NOW ONE Stop: 03/25/19 00:53 Last Admin: 03/25/19 01:01 Dose: 500 mg Documented by: SHILPA Ondansetron HCl (Zofran) 4 mg IV NOW ONE Stop: 03/24/19 22:54 Last Admin: 03/24/19 23:25 Dose: 4 mg Documented by: KEZIA Ondansetron HCl (Zofran Odt Prepack) 1 bottle MISC SEEINSTR ONE Stop: 03/25/19 00:53 Last Admin: 03/25/19 01:00 Dose: 1 bottle Documented by: SHILPA Vital Signs Vital signs: Vital Signs - 8 hr 03/24/19 22:55 03/25/19 01:08 Temperature 97.6 F Pulse Rate 90 74 Respiratory Rate 14 18 Blood Pressure 133/99 H 121/76 Pulse Oximetry 97 97 MDM - Nausea/Vomiting/Diarrhea Lab Data Result diagrams: 03/24/19 22:50 03/24/19 22:50 Labs: Lab Results 01/06/20 01/06/20 01/06/20 Range/Units 22:50 22:50 23:15 WBC 12.7 H (4.5-11.0) X10^3/uL RBC 5.73 (4.5-5.9) X10^6/uL Hgb 16.0 (13.5-17.5) g/dL Hct 46.6 (41-53) % MCV 81.3 (80-100) fL MCH 27.8 (26-34) PG MCHC 34.2 (30-36) % RDW 14.6 (11.6-14.8) % Plt Count 335 (150-400) X10^3/uL Neut % (Auto) 78.6 H (50-75) % Lymph % (Auto) 13.8 L (25-40) % [place] % (Auto) 6.4 (3-14) % Eos % (Auto) 0.8 L (2-4) % Baso % (Auto) 0.4 (0-2) % Neut # (Auto) 29503 H (3473-5209) /uL Lymph # (Auto) 1700 (5785-4862) /uL [place] # (Auto) 800 (0-900) /uL Eos # (Auto) 100 (0-450) /uL Baso # (Auto) 100 (0-100) /uL Sodium 141 (137-145) mmol/L Potassium 3.9 (3.4-5.1) mmol/L Chloride 104 (98-107) mmol/L Carbon Dioxide 24 (22-32) mmol/L BUN 14 (9-20) mg/dL Creatinine 0.80 (0.66-1.25) mg/dL Estimated GFR > 60.0 (>60) mL/min BUN/Creatinine Ratio 17.5 (6-22) Glucose 107 H (70-100) mg/dL Calcium 9.5 (8.4-10.2) mg/dL Total Bilirubin 0.9 (0.2-1.3) mg/dL AST 30 (17-59) IU/L ALT 36 (<50) IU/L Alkaline Phosphatase 104 (38-126) U/L Total Protein 9.0 H (6.3-8.2) g/dL Albumin 5.1 H (3.5-5.0) g/dL Globulin 3.9 (1.7-4.1) g/dL Albumin/Globulin Ratio 1.3 (1.0-2.8) Stl C. cayetanensis PCR Not detected (Not Detect) Stool Rotavirus (PCR) Not detected (Not Detect) Stool Adenovirus (PCR) Not detected (Not Detect) Stool Astrovirus (PCR) Not detected (Not Detect) Stool Cryptosporidium PCR Not detected (Not Detect) Stl E.coli Shiga Tox PCR Not detected (Not Detect) St Sh/Enteroin Ecoli PCR Not detected (Not Detect) Stool E coli O157 PCR Not Reportable Stl Enterotoxigenic E PCR Not detected (Not Detect) Stool EPEC (PCR) Not detected (Not Detect) Stl E. histolytica PCR Not detected (Not Detect) Stool Giardia Lamblia PCR Not detected (Not Detect) Stool Sapovirus (PCR) Not detected (Not Detect) Stl P. shigelloides PCR Not detected (Not Detect) St Y.enterocolitica PCR Not detected (Not Detect) Stool Vibrio (PCR) Not detected (Not Detect) Stl Vibrio cholerae PCR Not detected (Not Detect) Stl Enteroaggr Ecoli PCR Detected H (Not Detect) Stl Norovirus GI/GII PCR Detected H (Not Detect) Campylobacter (PCR) Not detected (Not Detect) C. difficile Tox (PCR) Not detected (Not Detect) Salmonella (PCR) Not detected (Not Detect) MDM Narrative Medical decision making narrative: Patient tolerating oral hydration and shows improvement of symptoms after the above-stated therapies. He is not septic and has a reassuring exam and labs. Stool notes 2 organisms, including E coli and has been given an antibiotic. He understands and agrees with the plan as well as return precautions. He has had questions answered to his apparent satisfaction Discharge Plan Departure Patient Disposition: Home Clinical Impression: Norovirus, E coli enteritis Discharge Date/Time: 03/25/19 01:18 Instructions: Escherichia coli Infection, Norovirus Infection Activity Restrictions/Additional Instructions: 1. Drink plenty of fluids with frequent small sips. 2. For the next 24 hours a clear liquid diet is advised. After that please employ a brat diet which would include bananas, rice, apples, toast. 3. Please take medications as directed. Prescriptions sent to [facility] at your request 4. Please follow-up with your doctor in the next 1-2 days. Call the office for an appointment. 5. Please return to the emergency Department for any worsening or persistent symptoms, such as increasing pain or fever. Prescriptions: New ciprofloxacin HCl 500 mg tablet 500 mg PO BID Qty: 10 RF: 0 hyoscyamine sulfate 0.125 mg tablet 0.125 mg PO BID-QID PRN (Reason: dyspepsia) Qty: 14 RF: 0 No Action esomeprazole magnesium 20 mg capsule,delayed release(DR/EC) 20 mg PO DAILY Qty: 14 RF: 0 ondansetron 4 mg tablet,disintegrating 4 mg PO Q6-8H PRN (Reason: nausea and vomiting) Qty: 10 RF: 0 Referrals: [facility] [Outside]
[2019-03-24] MEDS: ONDANSETRON 4 MG/2 ML INJ IV (23:25)
[2019-03-24] MEDS: SODIUM CHLORIDE 0.9% 1,000 ML 1000 ML IV (23:26)
[2019-03-25 00:55] LABS: Campylobacter Not Detected (Not Detect); Clostridium difficile toxin AB Not Detected (Not Detect); Plesiomonsa shigelloides Not Detected (Not Detect); Salmonella Not Detected (Not Detect); Vibrio Not Detected (Not Detect); Vibrio cholerae Not Detected (Not Detect); Yersinia enterocolitica Not Detected (Not Detect)
[2019-03-25 00:56] LABS: Adenovirus F 40/41 Not Detected (Not Detect); Astrovirus Not Detected (Not Detect); Cryptosporidium Not Detected (Not Detect); Cyclospora cayetanensis Not Detected (Not Detect); Entamoeba histolytica Not Detected (Not Detect); Enteroaggregative E.coli Detected (Not Detect); Enteropathogenic E.coli Not Detected (Not Detect); Enterotoxigenic E.coli It/st Not Detected (Not Detect); Giardia lamblia Not Detected (Not Detect); Norovirus GI/GII Detected (Not Detect); Rotavirus A Not Detected (Not Detect); Sapovirus Not Detected (Not Detect); Shiga-like toxin-prod E.coli Not Detected (Not Detect); Shigella/Enteroinvasive E.coli Not Detected (Not Detect)
[2019-03-25] MEDS: ONDANSETRON 4 MG ODT PREPACK 1 BOTTLE MISC (01:00)
[2019-03-25] MEDS: levoFLOXacin 250 MG TABLET 500 MG PO (01:01)
[2019-03-25 01:08] VITALS: BP 121/76; PULSE 74; RESP 18; O2SAT 97
== END 2019-03-25 01:18 | disposition home or self-care (01) ==
PROVIDERS: Emergency Provider Emergency Medicine
DX: A04.4 Other intestinal Escherichia coli infections (principal); A08.11 Acute gastroenteropathy due to Norwalk agent
CPT/HCPCS: 36415; 80053; 85025; 87507; 96361; 96374; 99284; J2405

== ENCOUNTER → 2019-04-30 15:04 | Outpatient (CLI) | payer MEDICAID, OTHER, SELFPAY ==
--- NOTE | 2019-04-30 | DI.RAD.S_ITS ---
PROCEDURE: XR RIBS LT 2V INDICATIONS: Contusion of left chest wall TECHNIQUE: 5 views of the left ribs were acquired. COMPARISON: None. FINDINGS: Surgical changes and devices: None. Bones and chest wall: No fractures or dislocations. No suspicious bony lesions. Overlying soft tissues appear unremarkable. Lungs and pleura: The visualized lung appears clear. No pleural effusions or pneumothorax are visible. IMPRESSION: Low lung volumes with scattered subsegmental atelectasis/scarring. No definite rib fracture identified. Dictated by: Chase Valentin M.D. on 04/30/2019 at 17:27 Approved by: Chase Valentin M.D. on 04/30/2019 at 17:29
== END ==
PROVIDERS: Referring Provider Family Medicine; Visit Provider Family Medicine
DX: S20.212A Contusion of left front wall of thorax, initial encounter (principal)
CPT/HCPCS: 71100

== ENCOUNTER 2022-05-07 10:59 | Emergency (ER) | payer MEDICAID, OTHER, SELFPAY ==
[2022-05-07 11:08] VITALS: BP 145/87; PULSE 82; RESP 18; TEMP 36.9; O2SAT 99; BMI 27.2
--- NOTE | 2022-05-07 11:13 | DI.RAD.S_ITS ---
PROCEDURE: XR ANKLE LT MIN 3V INDICATIONS: twisted ankle. Foot/ ankle pain TECHNIQUE: 3 views of the ankle were acquired. COMPARISON: [facility], CR, XR FOOT LT MIN 3V, 05/07/2022, 11:12. FINDINGS: Bones: No fractures or dislocations. Ankle mortise is normally aligned. No suspicious bony lesions. Soft tissues: No tibiotalar joint effusion. Achilles tendon appears normal. IMPRESSION: No acute osseous abnormalities. If clinical symptoms persist or clinical suspicion for pathology is high, a repeat examination in 7-10 days, or advanced imaging such as CT or MRI is suggested for further evaluation. Dictated by: Yudy Guillen M.D. on 05/07/2022 at 11:58 Approved by: Yudy Guillen M.D. on 05/07/2022 at 11:58
--- NOTE | 2022-05-07 11:13 | DI.RAD.S_ITS ---
PROCEDURE: XR FOOT LT MIN 3V INDICATIONS: twisted ankle. Foot/ ankle pain TECHNIQUE: 3 views of the foot were acquired. COMPARISON: None. FINDINGS: Bones: No fractures or dislocations. No suspicious bony lesions. There is os peroneum, which appears irregular. Soft tissues: No tibiotalar joint effusion. Achilles tendon appears normal. IMPRESSION: 1. No acute osseous abnormalities. 2. Irregular os peroneum. If there is clinical concern for os perineum injury, nonurgent follow-up MRI can be obtained. Dictated by: Yudy Guillen M.D. on 05/07/2022 at 11:59 Approved by: Yudy Guillen M.D. on 05/07/2022 at 12:01
[2022-05-07] MEDS: IBUPROFEN 400 MG TABLET 800 MG PO (13:10)
--- NOTE | 2022-05-07 13:16 | ED.LOWEXIN ---
HPI - Extremity Injury (Lower) <LEXIE Meadows - Last Filed: 05/07/22 13:27> General Chief Complaint: Extremity Injury, Lower Stated Complaint: twisted lt ankle yesterday Time Seen by Provider: 05/07/22 13:04 Source: patient Mode of arrival: Wheelchair History of Present Illness HPI Narrative: This is a 37-year-old male presents to the emergency department complaining of left ankle pain after he stepped onto uneven ground last night from a bleacher rolling his ankle. He states that it has been so painful he can hardly bear any weight at home. Complains of swelling and ecchymosis to the lateral aspect but bony pain over the medial malleolus. Denies numbness or tingling, has it wrapped in compression with an Joseluis bandage currently. Has not have medication prior to arrival. Denies previous ankle injury or foot injury. States that he has some pain over the lateral midfoot as well. Related Data Previous Rx's Medication Instructions Recorded esomeprazole magnesium 20 mg 20 mg PO DAILY #14 caps 05/11/18 capsule,delayed release ondansetron 4 mg disintegrating 4 mg PO Q6-8H PRN nausea and 05/11/18 tablet vomiting #10 tabs ciprofloxacin HCl 500 mg tablet 500 mg PO BID #10 tabs 03/25/19 hyoscyamine sulfate 0.125 mg tablet 0.125 mg PO BID-QID PRN dyspepsia 03/25/19 #14 tabs Allergies Allergy/AdvReac Type Severity Reaction Status Date / Time No Known Drug Allergies Allergy Verified 10/03/18 18:55 Patient History <LEXIE Meadows - Last Filed: 05/07/22 13:27> Medical History Family history non-contributory No chronic problems Surgical History No history of previous surgery Social History Smoking Status: Never smoker Smoking Status: Never smoker alcohol intake frequency: holidays/special occasions only Substance Use Type: does not use Exam <LEXIE Meadows - Last Filed: 05/07/22 13:27> Narrative Exam Narrative: Reviewed vitals signs and nursing notes. General: cooperative, comfortable, in no acute distress, well groomed, sitting in wheelchair with foot elevated, wrapped in Joseluis bandage and compression stocking MSK: moves all extremities, neurovascularly intact, no weakness, normal tone, left ankle with tenderness over the medial malleolus, nontender over lateral malleolus, nontender over Achilles, metatarsals, midfoot but tenderness over the proximal 5th metatarsal, DP and PT pulses are intact, brisk cap refill, ecchymosis and edema over the lateral malleolus but nontender over the bony aspect, no tenderness over calcaneus or plantar ecchymosis dorsiflexion plantar extension intact, only movement limited is due to pain, all toes with CSM intact Skin: brisk capillary refill, without pallor or erythema Initial Vital Signs Initial Vital Signs: Vital Signs Temperature 98.5 F 05/07/22 11:08 Pulse Rate 82 05/07/22 11:08 Respiratory Rate 18 05/07/22 11:08 Blood Pressure 145/87 H 05/07/22 11:08 Pulse Oximetry 99 05/07/22 11:08 Oxygen Delivery Method 05/07/22 11:08 <Niyah Marie DO - Last Filed: 05/16/22 03:12> Initial Vital Signs Initial Vital Signs: Vital Signs Temperature 98.5 F 05/07/22 11:08 Pulse Rate 82 05/07/22 11:08 Respiratory Rate 18 05/07/22 11:08 Blood Pressure 145/87 H 05/07/22 11:08 Pulse Oximetry 99 05/07/22 11:08 Oxygen Delivery Method 05/07/22 11:08 Procedures <LEXIE Meadows - Last Filed: 05/07/22 13:27> Orthopedic Splinting/Casting Injury #1: Lower Extremity Immobilizer: boot orthosis and Joseluis wrap Other Orthopedic Equipment: crutches Post splinting neuro exam: intact Post splinting vascular exam: intact Placed by: Nursing Course <LEXIE Meadows - Last Filed: 05/07/22 13:27> Orders Ordered: Discontinued Medications Ibuprofen (Ibuprofen 400 Mg Tablet) 800 mg PO NOW ONE Stop: 05/07/22 13:07 Last Admin: 05/07/22 13:10 Dose: 800 mg Documented By: KLS Vital Signs Vital signs: Vital Signs - 8 hr 05/07/22 11:08 Temperature 98.5 F Pulse Rate 82 Respiratory Rate 18 Blood Pressure 145/87 H Pulse Oximetry 99 Oxygen Delivery Method Room Air <Niyah Marie DO - Last Filed: 05/16/22 03:12> Orders Ordered: Discontinued Medications Ibuprofen (Ibuprofen 400 Mg Tablet) 800 mg PO NOW ONE Stop: 05/07/22 13:07 Last Admin: 05/07/22 13:10 Dose: 800 mg Documented By: KLS Vital Signs Vital signs: Vital Signs - 8 hr 05/07/22 11:08 Temperature 98.5 F Pulse Rate 82 Respiratory Rate 18 Blood Pressure 145/87 H Pulse Oximetry 99 Oxygen Delivery Method Room Air MDM - Extremity Injury (Lower) <LEXIE Meadows - Last Filed: 05/07/22 13:27> Imaging Data Extremity x-ray #1: Radiologist's Impression: PROCEDURE:? XR ANKLE LT MIN 3V ? INDICATIONS:? twisted ankle. Foot/ ankle pain ? TECHNIQUE:? 3 views of the ankle were acquired.? ? COMPARISON:? [facility], , XR FOOT LT MIN 3V, 05/07/2022, 11:12. ? FINDINGS:? ? Bones:? No fractures or dislocations.? Ankle mortise is normally aligned.? No suspicious bony lesions.? ? Soft tissues:? No tibiotalar joint effusion.? Achilles tendon appears normal.? ? ? IMPRESSION:? No acute osseous abnormalities.? If clinical symptoms persist or clinical suspicion for pathology is high, a repeat examination in 7-10 days, or advanced imaging such as CT or MRI is suggested for further evaluation. ? ? ? Dictated by: Yuyd Guillen M.D. on 05/07/2022 at 11:58 ? ? Approved by: Yudy Guillen M.D. on 05/07/2022 at 11:58 ? Extremity x-ray #2: Radiologist's Impression: PROCEDURE:? XR FOOT LT MIN 3V ? INDICATIONS:? twisted ankle. Foot/ ankle pain ? TECHNIQUE:? 3 views of the foot were acquired.? ? COMPARISON:? None. ? FINDINGS:? ? Bones:? No fractures or dislocations.? No suspicious bony lesions.? There is os peroneum, which appears irregular. ? Soft tissues:? No tibiotalar joint effusion.? Achilles tendon appears normal.? ? ? IMPRESSION:? ? 1. No acute osseous abnormalities. 2. Irregular os peroneum.? If there is clinical concern for os perineum injury, nonurgent follow-up MRI can be obtained. ? ? Dictated by: Yudy Guillen M.D. on 05/07/2022 at 11:59 ? ? Approved by: Yudy Guillen M.D. on 05/07/2022 at 12:01 ? MDM Narrative Medical decision making narrative: Chief Complaint: left ankle pain Independent historian: patient Differential diagnoses include but are not limited to: Ankle sprain/strain, ankle fracture, joint effusion, ligamental injury, foot fracture/ligamental injury I have independently reviewed the patient's vital signs and nursing notes as well as prior records if available, and used shared decision making to develop plan care with patient. Pertinent Imaging reviewed: Left ankle and foot x-ray without evidence of acute fracture Plan: Patient was fitted in an ankle boot and given crutches for ambulation, encouraged to follow-up with orthopedics for a repeat x-ray and referral to physical therapy as needed. He is recommended to ice, elevate, use Tylenol and ibuprofen every 8 hours with food and water for pain. Patient's symptoms improved over duration of stay with above-stated therapies. Social considerations that may affect disposition: none Questions are addressed and there is agreement with the plan and for follow-up. Patient is appropriate for outpatient management. MIPS: This encounter doesn't have any diagnosis' associated with MIPS criteria. Discharge Plan Departure Patient Disposition: Home Clinical Impression: Ankle sprain and strain Instructions: Ankle Sprain Activity Restrictions/Additional Instructions: *You have been diagnosed with an ankle sprain with tenderness over your medial malleolus, proximal 5th metatarsal, and lateral ankle tendons. Please follow-up with orthopedics in 1 week for repeat x-ray and evaluation. You may benefit from physical therapy. Please ice this, keep it elevated as much as possible for this week, take ibuprofen 800 mg with food and water every 8 hours, please take Tylenol with that for better pain control. You can use topical creams as well if they are helpful. I am sorry for how painful this is use the walking boot and crutches to walk around and follow-up with your regular doctor as needed. I wish you the best. *What to do: *Please continue to take your regular medications as directed. [ ] New medication prescriptions sent to your pharmacy: [ ] [ ] New medication written as a paper prescription [ x] No new medications given *Please follow up with your primary care provider in 2-3 days, call for an appointment. Let them know you were seen in the Emergency Department and that we asked that you be seen for follow-up. We will electronically transmit a record of today's note if your PCP is in our system *If you do not have a primary care provider please contact [phone] to establish care with one of the [facility] primary care providers. *Return to Emergency Department if you should have any new, worsening, or concerning symptoms, such as [fever greater than 101F, chills, worsening pain, persistent vomiting or other bothersome symptoms]. Prescriptions: No Action esomeprazole magnesium 20 mg capsule,delayed release(DR/EC) 20 mg PO DAILY Qty: 14 0RF ondansetron 4 mg tablet,disintegrating 4 mg PO Q6-8H PRN (Reason: nausea and vomiting) Qty: 10 0RF ciprofloxacin HCl 500 mg tablet 500 mg PO BID Qty: 10 0RF hyoscyamine sulfate 0.125 mg tablet 0.125 mg PO BID-QID PRN (Reason: dyspepsia) Qty: 14 0RF Referrals: [facility] [Provider Group] Stand Alone Forms: Patient Portal/API <Niyah Marie, - Last Filed: 05/16/22 03:12> Cosign ED Attending Santiagoature Attestation: I was immediately available in the department for consultation. Documentation has been reviewed.
[2022-05-07 13:51] VITALS: BP 177/96; PULSE 68; RESP 18; O2SAT 98
== END 2022-05-07 13:57 | disposition home or self-care (01) ==
PROVIDERS: Emergency Provider Nurse Practitioner Critical Care Medicine
DX: S93.402A Sprain of unspecified ligament of left ankle, initial encounter (principal); S96.912A Strain of unspecified muscle and tendon at ankle and foot level, left foot, initial encounter; X50.1XXA Overexertion from prolonged static or awkward postures, initial encounter
CPT/HCPCS: 73610; 73630; 99283